=== PATIENT | female | born 1950 | race African-American/Black ===

== ENCOUNTER 2022-02-02 11:23 | Inpatient (IN) | payer OTHER ==
[2022-02-02 12:15] LABS: BASO % 0.4 % (0-2.0); HEMATOCRIT 36.1 % (32.4-45.2); HEMOGLOBIN 11.6 GM/dL (10.7-15.3); LYMPH % 7.4 % (8-40); MCH 25.3 pg (25.7-33.7); MCHC 32.2 g/dl (32.0-36.0); MEAN CELL VOLUME 78.6 fl (80-96); MEAN PLT VOLUME 8.9 fl (7.5-11.1); MONO % 8.5 % (3.8-10.2); NEUT % 83.7 % (42.8-82.8); PLATELET COUNT 199 10^3/uL (134-434); RBC 4.59 M/mm3 (3.60-5.2); RDW 15.8 % (11.6-15.6); WHITE BLOOD COUNT 12.8 K/mm3 (4.0-10.0)
[2022-02-02] MEDS ORDERED: ACETAMINOPHEN 1000 MG/100 ML BAG IVPB ONE ×2 (12:19→17:57)
[2022-02-02 12:23] LABS: ACTIVATED PTT 28.7 SECONDS (25.2-36.5); INR 1.58 (0.83-1.09); PROTHROMBIN TIME (PATIENT) 18.3 SEC (9.7-13.0)
[2022-02-02] MEDS ORDERED: ACETAMINOPHEN INJECTION 100 ML IVPB ONE ×2 (12:49→18:36)
[2022-02-02 12:50] LABS: CHLORIDE 96 mmol/L (98-107); SODIUM 134 mmol/L (136-145)
[2022-02-02] MEDS: SODIUM CHLORIDE 1,000 ML IV SCH (12:54)
[2022-02-02 13:04] LABS: CALCIUM 9.2 mg/dL (8.5-10.1)
[2022-02-02 13:05] LABS: ALBUMIN 3.3 g/dl (3.4-5.0); ANION GAP 13 MMOL/L (8-16); CO2 26 mmol/L (21-32)
[2022-02-02 13:06] LABS: BLOOD UREA NITROGEN 10.7 mg/dL (7-18); GLUCOSE,RANDOM 180 mg/dL (74-106)
[2022-02-02 13:08] LABS: CREATININE 1.3 mg/dL (0.55-1.3); SGOT/AST 20 U/L (15-37); SGPT/ALT 23 U/L (13-61)
[2022-02-02 13:09] LABS: CHOLESTEROL 249 mg/dL (50-200)
[2022-02-02 13:10] LABS: TRIGLYCERIDES 59 mg/dL (0-150)
[2022-02-02 13:11] LABS: BILIRUBIN,TOTAL 0.6 mg/dL (0.2-1); LDL CHOLESTEROL (ONLY SJRH) 184 mg/dL (5-100)
[2022-02-02 13:12] LABS: ALK PHOS 100 U/L (45-117); HDL CHOLESTEROL 53 mg/dL (40-60)
[2022-02-02 13:31] LABS: EPI CELLS 15 /uL (0-25.1); HYALINE CASTS 1 /uL (0-3.1); PH,URINE 6.5 (5.0-8.0); URINE APPEARANCE CLEAR; URINE BACTERIA 2 /uL (0-1359); URINE BILIRUBIN NEGATIVE (NEGATIVE); URINE COLOR YELLOW; URINE GLUCOSE (UA) NEGATIVE (NEGATIVE); URINE KETONE NEGATIVE (NEGATIVE); URINE LEUK ESTERASE NEGATIVE (NEGATIVE); URINE NITRITE NEGATIVE (NEGATIVE); URINE PROTEIN 4+ (NEGATIVE); URINE RBC 57 /uL (0-23.9); URINE UROBILINOGEN 0.2 mg/dL (0.2-1.0); URINE WBC 8 /uL (0-25.8)
[2022-02-02 13:43] LABS: TOT PROT 12.2 g/dl (6.4-8.2)
[2022-02-02 13:58] LABS: LACTIC ACID 2.3 mmol/L (0.4-2.0)
[2022-02-02] MEDS ORDERED: SODIUM CHLORIDE 0.9% 500 ML INFUS.BAG IV ONE (14:12)
[2022-02-02] MEDS ORDERED: PIPERACILLIN/TAZOB 4.5 GM 4.5 GM in DEXTROSE 5%-WATER 100 ML IVPB ONE (14:22)
[2022-02-02] MEDS ORDERED: VANCOMYCIN 1 GM in D5W (PRE-DOCKED) 1,000 MG/250 ML IVPB ONE (14:22)
[2022-02-02] MEDS ORDERED: PIPERACILLIN/TAZOB 4.5 GM 4.5 GM/100 ML BAG IVPB ONE (14:40)
[2022-02-02] MEDS ORDERED: VANCOMYCIN/WATER FOR INJ (PEG) 1,000 MG/200 ML BAG IVPB ONE (15:14)
[2022-02-02] MEDS: ATORVASTATIN CA 10 MG TABLET (FP) PO SCH (22:50)
[2022-02-02] MEDS: HEPARIN NA (PORCINE) 5,000 UNITS/ML 1ML VIAL SQ SCH (22:51)
[2022-02-03] MEDS: NITROGLYCERIN 2% OINTMENT - 1GM PACKET TD PRN ×2 (02:52→12:24)
[2022-02-03] MEDS: ACETAMINOPHEN 1000 MG/100 ML BAG IVPB PRN ×2 (02:53→16:31)
[2022-02-03 09:17] LABS: BASO % 0.6 % (0-2.0); EOS % 0.1 % (0-4.5); HEMATOCRIT 35.9 % (32.4-45.2); HEMOGLOBIN 11.4 GM/dL (10.7-15.3); LYMPH % 9.1 % (8-40); MCH 25.1 pg (25.7-33.7); MCHC 31.7 g/dl (32.0-36.0); MEAN CELL VOLUME 79.1 fl (80-96); MEAN PLT VOLUME 9.5 fl (7.5-11.1); MONO % 8.7 % (3.8-10.2); NEUT % 81.5 % (42.8-82.8); PLATELET COUNT 180 10^3/uL (134-434); RBC 4.54 M/mm3 (3.60-5.2); WHITE BLOOD COUNT 14.5 K/mm3 (4.0-10.0)
[2022-02-03] MEDS: HYDROCHLOROTHIAZIDE 25 MG TABLET (FP) PO SCH (09:17)
[2022-02-03] MEDS: ACETAMINOPHEN 325 MG TABLET (FP) PO PRN (09:17)
[2022-02-03] MEDS: HEPARIN NA (PORCINE) 5,000 UNITS/ML 1ML VIAL SQ SCH (09:18)
[2022-02-03] MEDS ORDERED: CEFTRIAXONE 1 GM in DEXTROSE 5%-WATER - 50 ML IVPB SCH (10:00)
[2022-02-03] MEDS ORDERED: CEFTRIAXONE 1 GM in DEXTROSE 5%-WATER - 50 ML IVPB ONE (10:45)
[2022-02-03 10:54] LABS: CALCIUM 9.5 mg/dL (8.5-10.1)
[2022-02-03 10:55] LABS: ALBUMIN 2.9 g/dl (3.4-5.0); BLOOD UREA NITROGEN 15.9 mg/dL (7-18)
[2022-02-03 10:58] LABS: CREATININE 1.4 mg/dL (0.55-1.3)
[2022-02-03 10:59] LABS: BILIRUBIN,TOTAL 0.6 mg/dL (0.2-1); TOT PROT 11.4 g/dl (6.4-8.2)
[2022-02-03] MEDS ORDERED: SODIUM CHLORIDE 1,000 ML IV SCH (11:15)
[2022-02-03] MEDS: SODIUM CHLORIDE 1,000 ML IV SCH (12:00)
[2022-02-03] MEDS ORDERED: AMPICILLIN - 2 GM in SODIUM CHLORIDE 100 ML IVPB SCH (12:00)
[2022-02-03 13:02] LABS: BASO % 0.3 % (0-2.0); HEMATOCRIT 35.3 % (32.4-45.2); HEMOGLOBIN 11.3 GM/dL (10.7-15.3); LYMPH % 11.5 % (8-40); MCH 25.2 pg (25.7-33.7); MEAN CELL VOLUME 78.9 fl (80-96); MEAN PLT VOLUME 9.3 fl (7.5-11.1); MONO % 8.8 % (3.8-10.2); NEUT % 79.4 % (42.8-82.8); PLATELET COUNT 155 10^3/uL (134-434); RBC 4.47 M/mm3 (3.60-5.2)
[2022-02-03] MEDS ORDERED: FENTANYL CITRATE/PF 50 MCG/ML VIAL ONE ×2 (14:57)
[2022-02-03] MEDS ORDERED: FENTANYL CITRATE/PF 50 MCG/ML VIAL IVPUSH ONE (15:00)
[2022-02-03] MEDS ORDERED: WATER IVPB SCH ×2 (15:00→15:30)
[2022-02-03] MEDS ORDERED: DEXTROSE 5% IVPB SCH ×2 (15:00→15:30)
[2022-02-03] MEDS ORDERED: ACYCLOVIR INJECTION 700 MG in DEXTROSE 5%-WATER - 100 ML IVPB SCH (15:00)
[2022-02-03] MEDS ORDERED: ACYCLOVIR IVPB SCH ×2 (15:00→15:30)
[2022-02-03] MEDS ORDERED: CEFEPIME 2 GM in DEXTROSE 5%-WATER 100 ML IVPB SCH (15:30)
[2022-02-03] MEDS: VANCOMYCIN/WATER FOR INJ (PEG) 1,000 MG/200 ML BAG IVPB SCH ×2 (15:49→23:27)
[2022-02-03] MEDS: LABETALOL HCL 100 MG TABLET (FP) PO SCH ×2 (15:57→21:33)
[2022-02-03] MEDS: amLODIPine BESYLATE 10 MG TABLET (FP) PO SCH (15:57)
[2022-02-03 17:59] LABS: CSF APPEARANCE CLOUDY (CLEAR); CSF COLOR COLORLESS (COLORLESS)
[2022-02-03 18:06] LABS: BF GLUCOSE (CSF ONLY) 46 mg/dL (40-70)
[2022-02-03 18:10] LABS: CSF WBC 1881 mm3 (0-5)
[2022-02-03 18:26] LABS: HIV INTERPRETATION NEGATIVE (NEGATIVE)
[2022-02-03] MEDS: AMPICILLIN - 2 GM in SODIUM CHLORIDE 100 ML IVPB SCH (21:33)
[2022-02-03] MEDS: ATORVASTATIN CA 10 MG TABLET (FP) PO SCH (21:33)
[2022-02-03] MEDS ORDERED: CHLORHEXIDINE GLUCONATE 4% CLEANSER FOR DECOLONIZATION TP SCH (22:00)
[2022-02-03] MEDS ORDERED: CEFTRIAXONE 2 GM in DEXTROSE 5%-WATER 100 ML IVPB SCH (22:00)
[2022-02-03] MEDS ORDERED: MUPIROCIN 2% TOPICAL OINTMENT FOR DECOLONIZATION NS SCH (22:00)
[2022-02-03] MEDS: MEROPENEM 2 GM in SODIUM CHLORIDE 100 ML IVPB SCH (22:04)
[2022-02-04] MEDS: AMPICILLIN - 2 GM in SODIUM CHLORIDE 100 ML IVPB SCH ×3 (01:15→09:58)
[2022-02-04] MEDS: ACETAMINOPHEN 1000 MG/100 ML BAG IVPB PRN (02:00)
[2022-02-04] MEDS: MEROPENEM 2 GM in SODIUM CHLORIDE 100 ML IVPB SCH ×3 (06:23→23:54)
[2022-02-04] MEDS: LABETALOL HCL 100 MG TABLET (FP) PO SCH ×3 (06:24→21:51)
[2022-02-04 08:18] LABS: INR 1.57 (0.83-1.09); PROTHROMBIN TIME (PATIENT) 18.1 SEC (9.7-13.0)
[2022-02-04 08:25] LABS: BASO % 0.3 % (0-2.0); HEMATOCRIT 29.8 % (32.4-45.2); HEMOGLOBIN 9.7 GM/dL (10.7-15.3); LYMPH % 13.6 % (8-40); MCH 25.8 pg (25.7-33.7); MCHC 32.7 g/dl (32.0-36.0); MEAN CELL VOLUME 78.9 fl (80-96); MONO % 9.7 % (3.8-10.2); NEUT % 76.4 % (42.8-82.8); PLATELET COUNT 135 10^3/uL (134-434); RBC 3.78 M/mm3 (3.60-5.2); RDW 15.8 % (11.6-15.6); WHITE BLOOD COUNT 11.5 K/mm3 (4.0-10.0)
[2022-02-04 08:49] LABS: CHLORIDE 97 mmol/L (98-107); SODIUM 134 mmol/L (136-145)
[2022-02-04 08:53] LABS: CALCIUM 8.9 mg/dL (8.5-10.1)
[2022-02-04 08:54] LABS: ALBUMIN 2.5 g/dl (3.4-5.0); ANION GAP 10 MMOL/L (8-16); BLOOD UREA NITROGEN 23.7 mg/dL (7-18); CO2 28 mmol/L (21-32); GLUCOSE,RANDOM 145 mg/dL (74-106)
[2022-02-04 08:57] LABS: CREATININE 1.6 mg/dL (0.55-1.3); SGOT/AST 19 U/L (15-37); SGPT/ALT 19 U/L (13-61)
[2022-02-04 08:59] LABS: BILIRUBIN,TOTAL 0.4 mg/dL (0.2-1); TOT PROT 9.6 g/dl (6.4-8.2)
[2022-02-04 09:02] LABS: ALK PHOS 63 U/L (45-117)
[2022-02-04] MEDS ORDERED: CEFTRIAXONE 2 GM in DEXTROSE 5%-WATER 100 ML IVPB SCH (10:00)
[2022-02-04] MEDS: ACETAMINOPHEN 325 MG TABLET (FP) PO PRN ×2 (10:12→17:32)
[2022-02-04] MEDS: amLODIPine BESYLATE 10 MG TABLET (FP) PO SCH (10:12)
[2022-02-04] MEDS: HYDROCHLOROTHIAZIDE 25 MG TABLET (FP) PO SCH (10:12)
[2022-02-04 10:53] VITALS: BMI 25.7
[2022-02-04] MEDS ORDERED: POTASSIUM CHLORIDE TABS 20 MEQ TABLET.ER (FP) PO ONE (10:59)
[2022-02-04] MEDS ORDERED: SODIUM CHLORIDE 1,000 ML IV SCH (11:00)
[2022-02-04 15:21] LABS: EPI CELLS 9 /uL (0-25.1); HYALINE CASTS 3 /uL (0-3.1); PH,URINE 5.5 (5.0-8.0); URINE APPEARANCE CLEAR; URINE BACTERIA 1 /uL (0-1359); URINE BILIRUBIN NEGATIVE (NEGATIVE); URINE COLOR YELLOW; URINE GLUCOSE (UA) NEGATIVE (NEGATIVE); URINE KETONE TRACE (NEGATIVE); URINE LEUK ESTERASE NEGATIVE (NEGATIVE); URINE NITRITE NEGATIVE (NEGATIVE); URINE PROTEIN 2+ (NEGATIVE); URINE RBC 29 /uL (0-23.9); URINE UROBILINOGEN 0.2 mg/dL (0.2-1.0); URINE WBC 13 /uL (0-25.8)
[2022-02-04] MEDS: HEPARIN NA (PORCINE) 5,000 UNITS/ML 1ML VIAL SQ SCH (21:51)
[2022-02-04] MEDS: ATORVASTATIN CA 10 MG TABLET (FP) PO SCH (21:51)
[2022-02-05] MEDS: LABETALOL HCL 100 MG TABLET (FP) PO SCH ×3 (06:39→21:28)
[2022-02-05] MEDS: MEROPENEM 2 GM in SODIUM CHLORIDE 100 ML IVPB SCH ×2 (06:39→14:29)
[2022-02-05 08:15] LABS: BASO % 0.3 % (0-2.0); EOS % 0.1 % (0-4.5); HEMATOCRIT 29.3 % (32.4-45.2); HEMOGLOBIN 9.4 GM/dL (10.7-15.3); LYMPH % 20.8 % (8-40); MCH 25.2 pg (25.7-33.7); MCHC 32.1 g/dl (32.0-36.0); MEAN CELL VOLUME 78.7 fl (80-96); MEAN PLT VOLUME 9.9 fl (7.5-11.1); NEUT % 66.8 % (42.8-82.8); PLATELET COUNT 146 10^3/uL (134-434); RBC 3.72 M/mm3 (3.60-5.2); RDW 15.6 % (11.6-15.6); WHITE BLOOD COUNT 8.9 K/mm3 (4.0-10.0)
[2022-02-05 08:38] LABS: CALCIUM 8.3 mg/dL (8.5-10.1)
[2022-02-05 08:39] LABS: ALBUMIN 2.2 g/dl (3.4-5.0); BLOOD UREA NITROGEN 20.1 mg/dL (7-18); MAGNESIUM 2.4 mg/dL (1.8-2.4)
[2022-02-05 08:41] LABS: CREATININE 1.2 mg/dL (0.55-1.3)
[2022-02-05 08:43] LABS: BILIRUBIN,TOTAL 0.3 mg/dL (0.2-1); TOT PROT 8.8 g/dl (6.4-8.2)
[2022-02-05] MEDS: HEPARIN NA (PORCINE) 5,000 UNITS/ML 1ML VIAL SQ SCH ×2 (11:47→21:25)
[2022-02-05] MEDS: POTASSIUM CHLORIDE TABS 10 MEQ TABLET.ER (FP) PO SCH (11:47)
[2022-02-05] MEDS: amLODIPine BESYLATE 10 MG TABLET (FP) PO SCH (11:47)
[2022-02-05] MEDS: SODIUM CHLORIDE 1,000 ML IV SCH (11:47)
[2022-02-05] MEDS: ASPIRIN 81 MG CHEWABLE TABLETS PO SCH (11:47)
[2022-02-05] MEDS ORDERED: POTASSIUM CHLORIDE TABS 20 MEQ TABLET.ER (FP) PO ONE (13:15)
[2022-02-05] MEDS: CEFTRIAXONE 2 GM in DEXTROSE 5%-WATER 100 ML IVPB SCH (15:31)
[2022-02-05] MEDS: ACETAMINOPHEN 500 MG TABLET (FP) PO PRN (18:35)
[2022-02-05] MEDS: ATORVASTATIN CA 10 MG TABLET (FP) PO SCH (21:26)
[2022-02-06] MEDS: CEFTRIAXONE 2 GM in DEXTROSE 5%-WATER 100 ML IVPB SCH ×2 (04:22→14:45)
[2022-02-06] MEDS: LABETALOL HCL 100 MG TABLET (FP) PO SCH ×3 (06:28→21:30)
[2022-02-06 08:04] LABS: BASO % 0.5 % (0-2.0); EOS % 0.5 % (0-4.5); HEMATOCRIT 31.2 % (32.4-45.2); LYMPH % 19.1 % (8-40); MCH 25.3 pg (25.7-33.7); MEAN CELL VOLUME 78.9 fl (80-96); MEAN PLT VOLUME 9.8 fl (7.5-11.1); NEUT % 67.9 % (42.8-82.8); PLATELET COUNT 168 10^3/uL (134-434); RBC 3.96 M/mm3 (3.60-5.2); RDW 15.6 % (11.6-15.6); WHITE BLOOD COUNT 6.4 K/mm3 (4.0-10.0)
[2022-02-06 08:23] LABS: ALBUMIN 2.3 g/dl (3.4-5.0); CALCIUM 8.6 mg/dL (8.5-10.1)
[2022-02-06 08:24] LABS: BLOOD UREA NITROGEN 17.6 mg/dL (7-18)
[2022-02-06 08:27] LABS: CREATININE 1.1 mg/dL (0.55-1.3)
[2022-02-06 08:28] LABS: BILIRUBIN,TOTAL 0.4 mg/dL (0.2-1); TOT PROT 9.2 g/dl (6.4-8.2)
[2022-02-06] MEDS: HEPARIN NA (PORCINE) 5,000 UNITS/ML 1ML VIAL SQ SCH ×2 (10:19→21:30)
[2022-02-06] MEDS: ASPIRIN 81 MG CHEWABLE TABLETS PO SCH (10:19)
[2022-02-06] MEDS: POTASSIUM CHLORIDE TABS 10 MEQ TABLET.ER (FP) PO SCH (10:19)
[2022-02-06] MEDS: amLODIPine BESYLATE 10 MG TABLET (FP) PO SCH (10:19)
[2022-02-06] MEDS: SODIUM CHLORIDE 1,000 ML IV SCH (10:21)
[2022-02-06] MEDS: ACETAMINOPHEN 500 MG TABLET (FP) PO PRN (17:17)
[2022-02-06] MEDS: ATORVASTATIN CA 10 MG TABLET (FP) PO SCH (21:30)
[2022-02-06] MEDS: FLUTICASONE PROP 0.05% 16 GM NASAL SPRAY NS SCH (21:30)
[2022-02-07] MEDS: CEFTRIAXONE 2 GM in DEXTROSE 5%-WATER 100 ML IVPB SCH ×2 (02:53→14:36)
[2022-02-07] MEDS: LABETALOL HCL 100 MG TABLET (FP) PO SCH ×3 (05:28→21:29)
[2022-02-07 08:35] LABS: BASO % 0.6 % (0-2.0); EOS % 1.2 % (0-4.5); HEMATOCRIT 29.3 % (32.4-45.2); HEMOGLOBIN 9.4 GM/dL (10.7-15.3); MCH 25.3 pg (25.7-33.7); MCHC 32.2 g/dl (32.0-36.0); MEAN CELL VOLUME 78.4 fl (80-96); MEAN PLT VOLUME 9.7 fl (7.5-11.1); MONO % 10.5 % (3.8-10.2); NEUT % 73.7 % (42.8-82.8); PLATELET COUNT 194 10^3/uL (134-434); RBC 3.74 M/mm3 (3.60-5.2); RDW 15.2 % (11.6-15.6); WHITE BLOOD COUNT 7.5 K/mm3 (4.0-10.0)
[2022-02-07 09:06] LABS: ALBUMIN 2.2 g/dl (3.4-5.0); BLOOD UREA NITROGEN 15.9 mg/dL (7-18); CALCIUM 8.3 mg/dL (8.5-10.1)
[2022-02-07 09:11] LABS: BILIRUBIN,TOTAL 0.2 mg/dL (0.2-1); TOT PROT 8.4 g/dl (6.4-8.2)
[2022-02-07] MEDS: amLODIPine BESYLATE 10 MG TABLET (FP) PO SCH (09:39)
[2022-02-07] MEDS: ASPIRIN 81 MG CHEWABLE TABLETS PO SCH (09:39)
[2022-02-07] MEDS: POTASSIUM CHLORIDE TABS 10 MEQ TABLET.ER (FP) PO SCH (09:39)
[2022-02-07] MEDS: HEPARIN NA (PORCINE) 5,000 UNITS/ML 1ML VIAL SQ SCH ×2 (09:40→21:29)
[2022-02-07] MEDS: FLUTICASONE PROP 0.05% 16 GM NASAL SPRAY NS SCH ×2 (09:40→21:29)
[2022-02-07] MEDS: SODIUM CHLORIDE 1,000 ML IV SCH (11:00)
[2022-02-07] MEDS ORDERED: SODIUM CHLORIDE NASAL SPRAY 44 ML BOTTLE NS PRN (18:00)
[2022-02-07] MEDS: ATORVASTATIN CA 10 MG TABLET (FP) PO SCH (21:29)
[2022-02-08] MEDS: CEFTRIAXONE 2 GM in DEXTROSE 5%-WATER 100 ML IVPB SCH ×2 (03:03→15:17)
[2022-02-08] MEDS: LABETALOL HCL 100 MG TABLET (FP) PO SCH ×3 (06:20→21:37)
[2022-02-08 08:10] LABS: BASO % 0.5 % (0-2.0); EOS % 1.8 % (0-4.5); HEMATOCRIT 29.8 % (32.4-45.2); HEMOGLOBIN 9.5 GM/dL (10.7-15.3); MCH 25.4 pg (25.7-33.7); MEAN CELL VOLUME 79.5 fl (80-96); MEAN PLT VOLUME 9.3 fl (7.5-11.1); MONO % 7.9 % (3.8-10.2); NEUT % 79.8 % (42.8-82.8); PLATELET COUNT 248 10^3/uL (134-434); RBC 3.75 M/mm3 (3.60-5.2); RDW 15.9 % (11.6-15.6); WHITE BLOOD COUNT 8.9 K/mm3 (4.0-10.0)
[2022-02-08 08:37] LABS: ALBUMIN 2.3 g/dl (3.4-5.0); BLOOD UREA NITROGEN 15.9 mg/dL (7-18); CALCIUM 8.9 mg/dL (8.5-10.1)
[2022-02-08 08:41] LABS: BILIRUBIN,TOTAL 0.3 mg/dL (0.2-1); TOT PROT 8.8 g/dl (6.4-8.2)
[2022-02-08] MEDS: ASPIRIN 81 MG CHEWABLE TABLETS PO SCH (09:33)
[2022-02-08] MEDS: FLUTICASONE PROP 0.05% 16 GM NASAL SPRAY NS SCH ×2 (09:33→21:38)
[2022-02-08] MEDS: POTASSIUM CHLORIDE TABS 10 MEQ TABLET.ER (FP) PO SCH (09:33)
[2022-02-08] MEDS: HEPARIN NA (PORCINE) 5,000 UNITS/ML 1ML VIAL SQ SCH ×2 (09:33→21:37)
[2022-02-08] MEDS: amLODIPine BESYLATE 10 MG TABLET (FP) PO SCH (09:33)
[2022-02-08] MEDS: ATORVASTATIN CA 10 MG TABLET (FP) PO SCH (21:37)
[2022-02-09] MEDS: CEFTRIAXONE 2 GM in DEXTROSE 5%-WATER 100 ML IVPB SCH ×2 (02:40→18:01)
[2022-02-09] MEDS: LABETALOL HCL 100 MG TABLET (FP) PO SCH ×3 (06:10→22:01)
[2022-02-09 07:49] LABS: ALBUMIN 2.4 g/dl (3.4-5.0); BLOOD UREA NITROGEN 17.1 mg/dL (7-18)
[2022-02-09 07:52] LABS: CREATININE 1.1 mg/dL (0.55-1.3)
[2022-02-09 07:54] LABS: BILIRUBIN,TOTAL 0.2 mg/dL (0.2-1); TOT PROT 8.9 g/dl (6.4-8.2)
[2022-02-09] MEDS: HEPARIN NA (PORCINE) 5,000 UNITS/ML 1ML VIAL SQ SCH ×2 (10:54→22:01)
[2022-02-09] MEDS: amLODIPine BESYLATE 10 MG TABLET (FP) PO SCH (10:54)
[2022-02-09] MEDS: POTASSIUM CHLORIDE TABS 10 MEQ TABLET.ER (FP) PO SCH (10:54)
[2022-02-09] MEDS: ASPIRIN 81 MG CHEWABLE TABLETS PO SCH (10:54)
[2022-02-09] MEDS: FLUTICASONE PROP 0.05% 16 GM NASAL SPRAY NS SCH ×2 (10:54→22:01)
[2022-02-09 18:06] LABS: FREE KAPPA,SERUM 41.5 mg/L (3.3-19.4)
[2022-02-09] MEDS: ATORVASTATIN CA 10 MG TABLET (FP) PO SCH (22:01)
[2022-02-10] MEDS: CEFTRIAXONE 2 GM in DEXTROSE 5%-WATER 100 ML IVPB SCH (04:30)
[2022-02-10] MEDS: LABETALOL HCL 100 MG TABLET (FP) PO SCH (06:40)
[2022-02-10] MEDS ORDERED: ATORVASTATIN CA 10 MG TABLET (FP) PO SCH (07:00)
[2022-02-10] MEDS ORDERED: ATORVASTATIN CA 80 MG TABLET (FP) PO SCH (07:13)
[2022-02-10 08:32] LABS: INR 1.32 (0.83-1.09); PROTHROMBIN TIME (PATIENT) 15.2 SEC (9.7-13.0)
[2022-02-10 08:45] LABS: ALBUMIN 2.5 g/dl (3.4-5.0)
[2022-02-10 08:47] LABS: ALBUMIN 2.7 g/dl (3.4-5.0); BILIRUBIN,DIRECT 0.1 mg/dL (0.0-0.2); CALCIUM 9.3 mg/dL (8.5-10.1)
[2022-02-10 08:49] LABS: BLOOD UREA NITROGEN 15.6 mg/dL (7-18); TOT PROT 9.1 g/dl (6.4-8.2)
[2022-02-10 08:50] LABS: BILIRUBIN,TOTAL 0.2 mg/dL (0.2-1)
[2022-02-10 08:51] LABS: BILIRUBIN,TOTAL 0.2 mg/dL (0.2-1)
[2022-02-10 08:52] LABS: TOT PROT 9.6 g/dl (6.4-8.2)
[2022-02-10] MEDS: ASPIRIN 81 MG CHEWABLE TABLETS PO SCH (10:22)
[2022-02-10] MEDS: amLODIPine BESYLATE 10 MG TABLET (FP) PO SCH (10:22)
[2022-02-10] MEDS: FLUTICASONE PROP 0.05% 16 GM NASAL SPRAY NS SCH ×2 (10:22→22:35)
[2022-02-10] MEDS: HEPARIN NA (PORCINE) 5,000 UNITS/ML 1ML VIAL SQ SCH ×2 (10:22→21:30)
[2022-02-10] MEDS: POTASSIUM CHLORIDE TABS 10 MEQ TABLET.ER (FP) PO SCH (10:22)
[2022-02-10] MEDS ORDERED: CEFTRIAXONE 2 GM in SODIUM CHLORIDE 100 ML IVPB SCH (13:57)
[2022-02-10] MEDS: CEFTRIAXONE 2 GM in SODIUM CHLORIDE 100 ML IVPB SCH (17:56)
[2022-02-11] MEDS: CEFTRIAXONE 2 GM in SODIUM CHLORIDE 100 ML IVPB SCH ×2 (05:33→17:01)
[2022-02-11 08:28] LABS: BASO % 0.6 % (0-2.0); EOS % 1.9 % (0-4.5); HEMATOCRIT 27.6 % (32.4-45.2); HEMOGLOBIN 8.7 GM/dL (10.7-15.3); LYMPH % 15.2 % (8-40); MCH 25.2 pg (25.7-33.7); MCHC 31.6 g/dl (32.0-36.0); MEAN CELL VOLUME 79.9 fl (80-96); MEAN PLT VOLUME 8.5 fl (7.5-11.1); MONO % 9.7 % (3.8-10.2); NEUT % 72.6 % (42.8-82.8); PLATELET COUNT 332 10^3/uL (134-434); RBC 3.46 M/mm3 (3.60-5.2); WHITE BLOOD COUNT 6.9 K/mm3 (4.0-10.0)
[2022-02-11 08:50] LABS: CALCIUM 9.1 mg/dL (8.5-10.1)
[2022-02-11 08:51] LABS: ALBUMIN 2.6 g/dl (3.4-5.0); BLOOD UREA NITROGEN 16.7 mg/dL (7-18)
[2022-02-11 08:53] LABS: BILIRUBIN,DIRECT 0.1 mg/dL (0.0-0.2)
[2022-02-11 08:55] LABS: BILIRUBIN,TOTAL 0.2 mg/dL (0.2-1); TOT PROT 8.9 g/dl (6.4-8.2)
[2022-02-11] MEDS: HEPARIN NA (PORCINE) 5,000 UNITS/ML 1ML VIAL SQ SCH ×2 (09:34→22:05)
[2022-02-11] MEDS: ASPIRIN 81 MG CHEWABLE TABLETS PO SCH (09:35)
[2022-02-11] MEDS: FLUTICASONE PROP 0.05% 16 GM NASAL SPRAY NS SCH ×2 (09:35→23:03)
[2022-02-11] MEDS: amLODIPine BESYLATE 10 MG TABLET (FP) PO SCH (09:35)
[2022-02-11] MEDS: POTASSIUM CHLORIDE TABS 10 MEQ TABLET.ER (FP) PO SCH (09:35)
[2022-02-11] MEDS ORDERED: SODIUM CHLORIDE NASAL SPRAY 44 ML BOTTLE NS PRN (18:51)
[2022-02-11] MEDS ORDERED: NITROGLYCERIN 2% OINTMENT - 1GM PACKET TD PRN (18:51)
[2022-02-11 21:07] LABS: GLIADIN ANTIBODY IGA 4 units (0-19); GLIADIN ANTIBODY IGG 4 units (0-19); TRANSGLUTAMINASE IGG 4 U/mL (0-5)
[2022-02-12] MEDS: CEFTRIAXONE 2 GM in SODIUM CHLORIDE 100 ML IVPB SCH ×2 (06:12→17:50)
[2022-02-12] MEDS: ASPIRIN 81 MG CHEWABLE TABLETS PO SCH (09:43)
[2022-02-12] MEDS: PANTOPRAZOLE 40 MG TABLET PO SCH (09:43)
[2022-02-12] MEDS: amLODIPine BESYLATE 10 MG TABLET (FP) PO SCH (09:44)
[2022-02-12] MEDS: HEPARIN NA (PORCINE) 5,000 UNITS/ML 1ML VIAL SQ SCH ×2 (09:44→22:15)
[2022-02-12] MEDS: FLUTICASONE PROP 0.05% 16 GM NASAL SPRAY NS SCH ×2 (09:45→22:15)
[2022-02-12] MEDS: POTASSIUM CHLORIDE TABS 10 MEQ TABLET.ER (FP) PO SCH (09:45)
[2022-02-12 11:39] LABS: BASO % 0.7 % (0-2.0); EOS % 1.3 % (0-4.5); HEMATOCRIT 29.2 % (32.4-45.2); HEMOGLOBIN 9.5 GM/dL (10.7-15.3); MCH 26.1 pg (25.7-33.7); MCHC 32.5 g/dl (32.0-36.0); MEAN CELL VOLUME 80.1 fl (80-96); MEAN PLT VOLUME 7.9 fl (7.5-11.1); MONO % 6.9 % (3.8-10.2); NEUT % 78.1 % (42.8-82.8); PLATELET COUNT 355 10^3/uL (134-434); RBC 3.65 M/mm3 (3.60-5.2); RDW 15.7 % (11.6-15.6); WHITE BLOOD COUNT 6.5 K/mm3 (4.0-10.0)
[2022-02-12 12:32] LABS: ALBUMIN 2.8 g/dl (3.4-5.0); BLOOD UREA NITROGEN 18.1 mg/dL (7-18); CALCIUM 9.3 mg/dL (8.5-10.1)
[2022-02-12 12:34] LABS: BILIRUBIN,DIRECT 0.1 mg/dL (0.0-0.2)
[2022-02-12 12:35] LABS: CREATININE 1.1 mg/dL (0.55-1.3)
[2022-02-12 12:36] LABS: TOT PROT 10.1 g/dl (6.4-8.2)
[2022-02-12 12:38] LABS: BILIRUBIN,TOTAL 0.4 mg/dL (0.2-1)
[2022-02-12] MEDS: POLYETHYLENE GLYCOL (HEALTHYLAX) 3350 17 GM PACKET PO SCH (16:32)
[2022-02-13] MEDS: CEFTRIAXONE 2 GM in SODIUM CHLORIDE 100 ML IVPB SCH ×2 (05:44→18:13)
[2022-02-13] MEDS: HEPARIN NA (PORCINE) 5,000 UNITS/ML 1ML VIAL SQ SCH ×2 (10:20→21:31)
[2022-02-13] MEDS: amLODIPine BESYLATE 10 MG TABLET (FP) PO SCH (10:20)
[2022-02-13] MEDS: PANTOPRAZOLE 40 MG TABLET PO SCH (10:20)
[2022-02-13] MEDS: ASPIRIN 81 MG CHEWABLE TABLETS PO SCH (10:20)
[2022-02-13] MEDS: FLUTICASONE PROP 0.05% 16 GM NASAL SPRAY NS SCH ×2 (10:21→21:31)
[2022-02-13] MEDS: POLYETHYLENE GLYCOL (HEALTHYLAX) 3350 17 GM PACKET PO SCH (10:26)
[2022-02-13] MEDS: POTASSIUM CHLORIDE TABS 10 MEQ TABLET.ER (FP) PO SCH (13:38)
[2022-02-14] MEDS: CEFTRIAXONE 2 GM in SODIUM CHLORIDE 100 ML IVPB SCH ×2 (06:17→19:00)
[2022-02-14 10:55] LABS: BASO % 0.7 % (0-2.0); EOS % 1.2 % (0-4.5); HEMATOCRIT 29.1 % (32.4-45.2); HEMOGLOBIN 9.2 GM/dL (10.7-15.3); LYMPH % 16.2 % (8-40); MCH 25.4 pg (25.7-33.7); MCHC 31.5 g/dl (32.0-36.0); MEAN CELL VOLUME 80.5 fl (80-96); MEAN PLT VOLUME 8.1 fl (7.5-11.1); MONO % 10.3 % (3.8-10.2); NEUT % 71.6 % (42.8-82.8); PLATELET COUNT 355 10^3/uL (134-434); RBC 3.62 M/mm3 (3.60-5.2); RDW 15.7 % (11.6-15.6); WHITE BLOOD COUNT 5.9 K/mm3 (4.0-10.0)
[2022-02-14] MEDS: POTASSIUM CHLORIDE TABS 10 MEQ TABLET.ER (FP) PO SCH (10:57)
[2022-02-14] MEDS: POLYETHYLENE GLYCOL (HEALTHYLAX) 3350 17 GM PACKET PO SCH ×2 (10:57→11:04)
[2022-02-14] MEDS: amLODIPine BESYLATE 10 MG TABLET (FP) PO SCH (10:57)
[2022-02-14] MEDS: ASPIRIN 81 MG CHEWABLE TABLETS PO SCH (10:57)
[2022-02-14] MEDS: FLUTICASONE PROP 0.05% 16 GM NASAL SPRAY NS SCH ×2 (10:58→23:39)
[2022-02-14] MEDS: PANTOPRAZOLE 40 MG TABLET PO SCH (10:58)
[2022-02-14] MEDS: HEPARIN NA (PORCINE) 5,000 UNITS/ML 1ML VIAL SQ SCH ×2 (10:58→23:40)
[2022-02-14 11:28] LABS: BLOOD UREA NITROGEN 13.7 mg/dL (7-18); CALCIUM 9.6 mg/dL (8.5-10.1)
[2022-02-14 11:29] LABS: ALBUMIN 2.7 g/dl (3.4-5.0)
[2022-02-14 11:33] LABS: CREATININE 1.1 mg/dL (0.55-1.3)
[2022-02-14 11:34] LABS: BILIRUBIN,TOTAL 0.2 mg/dL (0.2-1)
[2022-02-15] MEDS: CEFTRIAXONE 2 GM in SODIUM CHLORIDE 100 ML IVPB SCH ×2 (07:19→18:13)
[2022-02-15] MEDS: amLODIPine BESYLATE 10 MG TABLET (FP) PO SCH (09:27)
[2022-02-15] MEDS: PANTOPRAZOLE 40 MG TABLET PO SCH (09:27)
[2022-02-15] MEDS: ASPIRIN 81 MG CHEWABLE TABLETS PO SCH (09:27)
[2022-02-15] MEDS: POLYETHYLENE GLYCOL (HEALTHYLAX) 3350 17 GM PACKET PO SCH ×2 (09:27→09:28)
[2022-02-15] MEDS: POTASSIUM CHLORIDE TABS 10 MEQ TABLET.ER (FP) PO SCH (09:28)
[2022-02-15] MEDS: HEPARIN NA (PORCINE) 5,000 UNITS/ML 1ML VIAL SQ SCH ×2 (09:28→21:13)
[2022-02-15] MEDS: FLUTICASONE PROP 0.05% 16 GM NASAL SPRAY NS SCH ×2 (09:29→21:11)
[2022-02-15 11:57] LABS: INR 1.35 (0.83-1.09); PROTHROMBIN TIME (PATIENT) 15.6 SEC (9.7-13.0)
[2022-02-16 05:23] VITALS: RESP 20
[2022-02-16] MEDS: CEFTRIAXONE 2 GM in SODIUM CHLORIDE 100 ML IVPB SCH (06:31)
[2022-02-16 09:11] VITALS: BP 148/65; PULSE 70; TEMP 97.7
[2022-02-16] MEDS: ASPIRIN 81 MG CHEWABLE TABLETS PO SCH (10:33)
[2022-02-16] MEDS: amLODIPine BESYLATE 10 MG TABLET (FP) PO SCH (10:34)
[2022-02-16] MEDS: PANTOPRAZOLE 40 MG TABLET PO SCH (10:34)
[2022-02-16] MEDS: POTASSIUM CHLORIDE TABS 10 MEQ TABLET.ER (FP) PO SCH (10:34)
[2022-02-16] MEDS: HEPARIN NA (PORCINE) 5,000 UNITS/ML 1ML VIAL SQ SCH (10:35)
[2022-02-16] MEDS: POLYETHYLENE GLYCOL (HEALTHYLAX) 3350 17 GM PACKET PO SCH (10:35)
[2022-02-16] MEDS: FLUTICASONE PROP 0.05% 16 GM NASAL SPRAY NS SCH (10:35)
== END 2022-02-16 12:49 | disposition home or self-care (01) | DRG 871 ==
LOC: JER 11:23 → JERBED 16:13 → J4W 20:39 → J6S 02-11 18:44
PROVIDERS: ADMIT Internal Medicine; ATTEND Internal Medicine
PROC: 30233L1 Transfusion of Nonautologous Fresh Plasma into Peripheral Vein, Percutaneous Approach (ICD-10-PCS; principal; 2022-02-03)
PROC: 30233K1 Transfusion of Nonautologous Frozen Plasma into Peripheral Vein, Percutaneous Approach (ICD-10-PCS; 2022-02-03)
PROC: 009U3ZZ Drainage of Spinal Canal, Percutaneous Approach (ICD-10-PCS; 2022-02-03)
DX: A39 Meningococcal infection (principal); G00.0 Hemophilus meningitis; D68.9 Coagulation defect, unspecified; N17.9 Acute kidney failure, unspecified; I24.8 Other forms of acute ischemic heart disease; E87.20 Acidosis, unspecified; E87.1 Hypo-osmolality and hyponatremia; D84.9 Immunodeficiency, unspecified; I10 Essential (primary) hypertension; D64.9 Anemia, unspecified; E78.5 Hyperlipidemia, unspecified; E78.00 Pure hypercholesterolemia, unspecified; E87.6 Hypokalemia
CPT/HCPCS: 0241U-QW; 36415; 36430; 62272; 70450-TC; 70496-TC; 70498-TC; 71045-TC-FY; 71046-TC-FY; 74178-TC; 76705-TC; 76775-TC; 80048; 80053; 80061; 80076; 81003; 82150; 82232; 82550; 82553; 82607; 82728; 82784; 82945; 82977; 83036; 83516; 83540; 83550; 83605; 83615; 83690; 83735; 83883; 84155; 84157; 84165; 84484; 85025; 85045; 85610; 85651; 85730; 86038; 86140; 86162; 86225; 86431; 86705; 86708; 86803; 86850; 86900; 86901; 87040; 87070; 87077; 87086; 87184; 87205; 87340; 87389; 87517; 87529; 87633; 87899; 93005; 93010; 93306-TC; 99285-25; J1644; P9017; Q9967